=== PATIENT | female | born 1990 | race Two or more races ===

== ENCOUNTER 2025-07-11 13:48 | Emergency (ER) | payer MEDICAID, SELFPAY ==
[2025-07-11 13:49] VITALS: BMI 24.3
--- NOTE | 2025-07-11 13:50 | XR_ITS ---
Examination: Complete OB ultrasound, less than 14 weeks, transabdominal Date and time of exam: July 11, 2025, 1359 hours INDICATIONS: Heavy vaginal bleeding and pelvic cramping beginning 2 days ago Technique: Obstetrical ultrasound images less than 14 weeks performed via transabdominal imaging Findings: Uterus 7.7 cm Intrauterine gestational sac 1.4 cm corresponds to 6 weeks 2 days gestational age No pole, no cardiac activity Right ovary 2.7 cm arterial flow Left ovary obscured by bowel gas IMPRESSION: Empty intrauterine gestational sac corresponding to 6 weeks 2 days gestational age Recommend transvaginal pelvic sonography follow-up to exclude embryonic demise
[2025-07-11 14:00] VITALS: BP 129/80; PULSE 92; RESP 16; TEMP 36.9; O2SAT 98
[2025-07-11 14:25] LABS: Basophils # (Auto) 0.0 Thou/mm3 (0.0-0.2); Basophils % (Auto) 1 % (0-2.5); Eosinophils # (Auto) 0.0 Thou/mm3 (0.0-0.5); Eosinophils % (Auto) 0 % (0-10); Hematocrit 42.3 % (36.0-46.0); Hemoglobin 13.2 g/dL (12.0-16.0); Immature Granulocytes Auto 0.01 Thou/mm3 (0.00-0.00); Lymphocytes # (Auto) 1.4 Thou/mm3 (1.0-4.8); Lymphocytes % (Auto) 23 % (10-50); Mean Corpuscular HGB Conc 31.2 g/dl (31.0-37.0); Mean Corpuscular Hemoglobin 25.7 pg (25.0-35.0); Mean Corpuscular Volume 82 fL (80-100); Monocytes # (Auto) 0.3 Thou/mm3 (0.0-0.8); Monocytes % (Auto) 6 % (0-12); Neutrophils # (Auto) 4.2 Thou/mm3 (1.8-7.7); Neutrophils % (Auto) 70 % (37-80); Nucleated Red Blood Cell # 0.00 Thou/mm3 (0.00-0.00); Nucleated Red Blood Cell % 0 /100 WBC (0); Platelet Count 220 Thou/mm3 (140-440); RDW Standard Deviation 46.7 fL (36.4-46.3); Red Blood Count 5.14 Miln/mm3 (4.00-5.20); White Blood Count 5.9 Thou/mm3 (3.6-11.0)
[2025-07-11 14:48] LABS: Alanine Aminotransferase 25 U/L (10-49); Albumin, Serum 5.0 gm/dL (3.5-5.0); Albumin/Globulin Ratio 1.9 (1.2-2.2); Alkaline Phosphatase 66 U/L (46-116); Anion Gap 10 (7-16); Aspartate Amino Transferase 31 U/L (0-34); BUN/Creatinine Ratio 8 Ratio (12-20); Bilirubin,Total 1.0 mg/dL (0.3-1.2); Blood Urea Nitrogen 6 mg/dL (9-23); Calcium 9.4 mg/dL (8.3-10.6); Calcium (Corrected) 9.4 mg/dL (8.5-10.1); Carbon Dioxide 24.4 mMol/L (20.0-31.0); Chloride 106 mMol/L (98-107); Creatinine (Component) 0.8 mg/dL (0.6-1.3); Estimated Creatinine Clearance 81.2 mL/min (>60); Globulin 2.7 gm/dL (2.3-3.5); Glucose 96 mg/dL (74-106); Osmolality,Calculated 277 (275-295); Potassium 3.8 mMol/L (3.4-5.1); Sodium 140 mMol/L (136-145); Total Protein 7.7 gm/dL (5.7-8.2); eGFR > 60 See Note
[2025-07-11 15:21] LABS: Beta HCG,Quantitative 7567 mIU/mL (<5.0)
--- NOTE | 2025-07-11 16:24 | PD.EDVAGBL ---
ED OB Contraction Preg RMI/HPI General Chief complaint: Vaginal Bleeding Stated complaint: VAG BLEEDING 9 WEEKS PREG Time Seen by Provider: 07/11/25 13:51 Arrival date/time: 07/11/25 13:48 34-year-old female presents to the Emergency Department today for complaints of vaginal spotting and mild pelvic pain patient reports she believes she is approximately 9 weeks patient is G3, P2 Limitations: no limitations Related Data Home Medications ?Medication ?Instructions ?Recorded ?Confirmed nitrofurantoin 100 mg PO BID 03/03/18 03/03/18 monohydrate/macrocrystals 100 mg capsule (Macrobid) phenazopyridine 100 mg tablet 100 mg PO TID PRN DYSURIA 03/03/18 03/03/18 (Pyridium) Allergies Allergy/AdvReac Type Severity Reaction Status Date / Time No Known Allergies Allergy Verified 07/11/25 13:49 Review of Systems Review of Systems Systems Reviewed: All systems reviewed, normal except as documented Constitutional Constitutional: Reports system reviewed and no additional complaints, except as documented, Denies fever(s) and Denies headache(s) Eyes Eyes: Reports system reviewed and no additional complaints, except as documented and Denies blurry vision ENT Ears, Nose, Mouth, and Throat: Reports system reviewed and no additional complaints, except as documented, Denies headache(s), Denies nasal congestion and Denies nasal discharge Cardiovascular Cardiovascular: Reports system reviewed and no additional complaints, except as documented, Denies chest pain and Denies dyspnea Respiratory Respiratory: Reports system reviewed and no additional complaints, except as documented, Denies chest congestion, Denies cough and Denies dyspnea Gastrointestinal Gastrointestinal: Reports system reviewed and no additional complaints, except as documented and Denies abdominal pain Genitourinary Genitourinary: Reports system reviewed and no additional complaints, except as documented and Reports abnormal vaginal bleeding Integumentary/Breasts Skin/Breast: Reports system reviewed and no additional complaints, except as documented and Denies rash Neurologic Neurologic: Reports system reviewed and no additional complaints, except as documented, Reports as per HPI and Denies headache(s) Past Medical History Past Medical History CARDIAC: Negative Congestive Heart Failure RESPIRATORY: Negative Chronic Obstructive Pulmonary Disease (COPD) GENITOURINARY: Negative Renal Disease ENDOCRINE: Negative Diabetes Mellitus Type 1 or Diabetes Mellitus Type 2 Social History SMOKING STATUS: Never smoker ED Exam General Limitations: Present no limitations General appearance: Present alert and in no apparent distress Head Head exam: Present atraumatic, normocephalic and normal inspection Eye Eye exam: Present normal appearance, PERRL and EOMI; Absent conjunctival injection ENT ENT exam: Present normal exam, normal oropharynx and mucous membranes moist Neck Neck exam: Present normal inspection, full ROM and trachea midline Chest Chest inspection: Present normal inspection and symmetric chest wall rise Respiratory Respiratory exam: Present normal lung sounds bilaterally Cardiovascular Cardiovascular exam: Present regular rate, normal rhythm and normal heart sounds Abdominal Exam Abdominal exam: Present soft and normal bowel sounds; Absent distention, tenderness, guarding, rebound or rigidity Extremities Exam Extremities exam: Present normal inspection and full ROM Back Exam Back exam: Present normal inspection and full ROM Neurological Exam Neurological exam: Present alert, oriented X3 and CN II-XII intact Psychiatric Psychiatric exam: Present normal affect and normal mood Skin Skin exam: Present warm, dry, intact and normal color Course Quality Measures none Orders Category Date Time Status US OB <= 14 weeks fetus Stat Exams 07/11/25 13:50 Completed ABO/RH Type Stat Lab 07/11/25 14:14 Completed Beta HCG,Quantitative Stat Lab 07/11/25 14:14 Completed CBC Stat Lab 07/11/25 14:14 Completed Comprehensive Metabolic Panel Stat Lab 07/11/25 14:14 Completed Vital Signs Vital signs: Vital Signs Temperature 98.5 F 07/11/25 14:00 Pulse Rate 92 07/11/25 14:00 Respiratory Rate 16 07/11/25 14:00 Blood Pressure 129/80 07/11/25 14:00 Pulse Oximetry (%) 98 07/11/25 14:00 Oxygen Delivery Method Room Air 07/11/25 14:00 O2 saturation 98% room air with normal Vaginal Bleeding MDM Narrative MDM Narrative: 34-year-old female presents to the Emergency Department today for complaints of vaginal spotting and mild pelvic pain patient reports she believes she is approximately 9 weeks patient is G3, P2 Clinically patient well-appearing does not appear ill or toxic no distress Lab work and imaging obtained I explained to the patient lab work and ultrasound is either indicative of early or miscarriage Consultation: Spoke with Dr Lal states he can see the patient as office on Wednesday at 1 PM Explained to the patient if she develops any significant pain or bleeding to return meetly for further evaluation Patient data External records reviewed:: [facility] previous records Clinical information provided by:: patient Social determinants that could affect healthcare access:: none Patient has the following chronic illnesses:: None How is presenting disease/condition affected by chronic disease/condition?: no chronic disease Evaluation data The following diagnostics were reviewed and interpreted by me:: lab results and radiology exam(s) Lab and/or radiology exams considered but not ordered:: Labs radiology obtained Interpretation Summary: Reviewed by me Medications / Prescriptions Medications or Prescriptions considered but not ordered:: Given no meds Medication administrations:: Given no meds Consultations Consultation(s) initiated? (list below): Yes Diagnosis Vaginal Bleeding Differential Diagnosis: missed and threatened Most likely diagnosis given after review of the tests above:: Threatened Admission Indicated Admission indicated?: not indicated Admission Request Was there a request for admission?: No Disposition Plan Disposition Plan: Discharge Discharge Attestation Discharge Attestation: The patient and all family members were given an opportunity to ask questions and understood the discharge instructions. Discharge instructions specifically effects, indications for sooner follow up or return to the emergency department, and the expected course of current diagnosis. Patient condition: Stable Discharge Plan Plan Patient Disposition: HOME (Self Care) Discharge Disposition comment: Stable Prescriptions/Referrals Prescriptions/Med Rec: No Action phenazopyridine [Pyridium] 100 mg Tablet 100 mg PO TID PRN (Reason: DYSURIA) nitrofurantoin monohyd/m-cryst [Macrobid] 100 mg Capsule 100 mg PO BID Referrals: Leonel Lal MD [Physician, LICENSE ISSUER] - 07/16/25 1:00 pm No Primary/Family,Physician [Primary Care Provider] - In 1 week Problem List Clinical Impression: Threatened Patient/Caregiver Discharge Instructions Education Materials: ED Possible Miscarriage ... Additional Instructions: Please see Dr Lal Wednesday at 1 PM for worsening symptoms or concerns return immediately Print Language: Thai Stand Alone Forms: Chey Award Info., Work/School Release, Patient Portal Info Letter PA/CLINICAL DENTAL TECHNICIAN Supervising Physician PA/CLINICAL DENTAL TECHNICIAN Supervising Physician: Dr. eBckett
== END 2025-07-11 17:18 | disposition home or self-care (01) ==
PROVIDERS: Nurse Practitioner Primary Care; Emergency Provider Emergency Medicine
DX: O20.0 Threatened abortion (principal); Z3A.09 9 weeks gestation of pregnancy
CPT/HCPCS: 36415; 76801; 80053; 84702; 85025; 86900; 86901; 99283

== ENCOUNTER 2025-07-17 20:36 | Emergency (ER) | payer MEDICAID, SELFPAY ==
[2025-07-17 20:38] VITALS: BMI 23.7
[2025-07-17 20:49] VITALS: BP 121/81; PULSE 98; RESP 18; TEMP 36.8; O2SAT 98
--- NOTE | 2025-07-17 21:01 | XR_ITS ---
Examination: Complete OB ultrasound, less than 14 weeks, transabdominal Date and time of exam: July 17, 2025, 2133 hours INDICATIONS: Heavy vaginal bleeding today Technique: Obstetrical ultrasound images less than 14 weeks performed via transabdominal imaging Findings: Uterus 13.8 cm Intrauterine gestational sac 6.7 cm corresponds to 13 weeks 1 day gestational age Gestational sac in the cervix No pole, no cardiac activity Right ovary 2.7 cm arterial flow Left ovary obscured by bowel gas IMPRESSION: Spontaneous in progress, recommend short-term follow-up transvaginal pelvic sonography
--- NOTE | 2025-07-17 21:01 | PD.EDRME ---
Rapid Medical Screening Exam RME Arrival date/time: 07/17/25 20:36 This is a case of 34-year-old female with no medical history came into the emergency room due to vaginal bleeding patient is 10 weeks and was seen here 3 days ago and was treated as threatened about 3 para 2 worsening of the vaginal bleeding and pelvic cramping this patient decided to sought consult here in the emergency Chief Complaint: Vaginal Bleeding Time Seen by Provider: 07/17/25 20:46 Vital signs: Vital Signs Temperature 98.2 F 07/17/25 20:49 Pulse Rate 98 07/17/25 20:49 Respiratory Rate 18 07/17/25 20:49 Blood Pressure 121/81 07/17/25 20:49 Pulse Oximetry (%) 98 07/17/25 20:49 Oxygen Delivery Method Room Air 07/17/25 20:49 Exam: Pelvic tenderness no guarding no rebound no rigidity Clinical Impression: Vaginal bleeding and
[2025-07-17 21:19] LABS: Basophils # (Auto) 0.0 Thou/mm3 (0.0-0.2); Basophils % (Auto) 0 % (0-2.5); Eosinophils # (Auto) 0.0 Thou/mm3 (0.0-0.5); Eosinophils % (Auto) 1 % (0-10); Hematocrit 40.9 % (36.0-46.0); Hemoglobin 12.7 g/dL (12.0-16.0); Immature Granulocytes Auto 0.02 Thou/mm3 (0.00-0.00); Lymphocytes # (Auto) 1.5 Thou/mm3 (1.0-4.8); Lymphocytes % (Auto) 20 % (10-50); Mean Corpuscular HGB Conc 31.1 g/dl (31.0-37.0); Mean Corpuscular Hemoglobin 26.0 pg (25.0-35.0); Mean Corpuscular Volume 84 fL (80-100); Monocytes # (Auto) 0.4 Thou/mm3 (0.0-0.8); Monocytes % (Auto) 5 % (0-12); Neutrophils # (Auto) 5.4 Thou/mm3 (1.8-7.7); Neutrophils % (Auto) 74 % (37-80); Nucleated Red Blood Cell # 0.00 Thou/mm3 (0.00-0.00); Nucleated Red Blood Cell % 0 /100 WBC (0); Platelet Count 215 Thou/mm3 (140-440); RDW Standard Deviation 47.1 fL (36.4-46.3); Red Blood Count 4.89 Miln/mm3 (4.00-5.20); White Blood Count 7.4 Thou/mm3 (3.6-11.0)
[2025-07-17 21:42] LABS: Alanine Aminotransferase 20 U/L (10-49); Albumin, Serum 4.9 gm/dL (3.5-5.0); Albumin/Globulin Ratio 2.0 (1.2-2.2); Alkaline Phosphatase 65 U/L (46-116); Anion Gap 10 (7-16); Aspartate Amino Transferase 28 U/L (0-34); BUN/Creatinine Ratio 10 Ratio (12-20); Bilirubin,Total 0.8 mg/dL (0.3-1.2); Blood Urea Nitrogen 9 mg/dL (9-23); Calcium 9.4 mg/dL (8.3-10.6); Calcium (Corrected) 9.4 mg/dL (8.5-10.1); Carbon Dioxide 24.0 mMol/L (20.0-31.0); Chloride 106 mMol/L (98-107); Creatinine (Component) 0.9 mg/dL (0.6-1.3); Estimated Creatinine Clearance 72.2 mL/min (>60); Globulin 2.5 gm/dL (2.3-3.5); Glucose 115 mg/dL (74-106); Osmolality,Calculated 279 (275-295); Potassium 4.1 mMol/L (3.4-5.1); Sodium 140 mMol/L (136-145); Total Protein 7.4 gm/dL (5.7-8.2); eGFR > 60 See Note
[2025-07-17 21:52] LABS: Beta HCG,Quantitative 2585 mIU/mL (<5.0)
[2025-07-17 22:28] VITALS: BP 130/68; PULSE 81; RESP 19; TEMP 36.6; O2SAT 99
[2025-07-18 00:18] VITALS: BP 105/85; PULSE 69; RESP 19; TEMP 36.8; O2SAT 100
[2025-07-18 00:47] LABS: Collection Type, Urine Voided
--- NOTE | 2025-07-18 01:21 | PD.EDVAGBL ---
ED OB Contraction Preg RMI/HPI General Chief complaint: Vaginal Bleeding Stated complaint: MISCARGE VAG BLEEDING Time Seen by Provider: 07/17/25 20:46 Arrival date/time: 07/17/25 20:36 Limitations: no limitations RME / HPI RME / HPI Narrative: 07/17/25 20:36 This is a case of 34-year-old female with no medical history came into the emergency room due to vaginal bleeding patient is 10 weeks and was seen here 3 days ago and was treated as threatened about 3 para 2 worsening of the vaginal bleeding and pelvic cramping this patient decided to sought consult here in the emergency Dr. Tapia's Main ED Evaluation: 34yo female who is a patient of Dr Lal at approximately 10 weeks gestation presents to the Emergency Department with vaginal bleeding x 1 day. The patient states that she was seen earlier this week and was told that she may have had a miscarriage but it was too early to tell . She saw her CUSTOMER OPERATIONS SPECIALIST, Dr. Lal who said the same thing. The baby was measuring at 6 weeks and not 10 weeks. Today the patient started having vaginal bleeding. She had a cramping that is now improved. She believes that she has passed fetus. Denies any other associated symptoms. NKA. Related Data Home Medications ?Medication ?Instructions ?Recorded ?Confirmed nitrofurantoin 100 mg PO BID 03/03/18 03/03/18 monohydrate/macrocrystals 100 mg capsule (Macrobid) phenazopyridine 100 mg tablet 100 mg PO TID PRN DYSURIA 03/03/18 03/03/18 (Pyridium) Allergies Allergy/AdvReac Type Severity Reaction Status Date / Time No Known Allergies Allergy Verified 07/17/25 20:42 Review of Systems Review of Systems Systems Reviewed: All systems reviewed, normal except as documented Past Medical History Past Medical History CARDIAC: Negative Congestive Heart Failure RESPIRATORY: Negative Chronic Obstructive Pulmonary Disease (COPD) GENITOURINARY: Negative Renal Disease ENDOCRINE: Negative Diabetes Mellitus Type 1 or Diabetes Mellitus Type 2 Social History SMOKING STATUS: Never smoker ED Exam General Limitations: Present no limitations General appearance: Present alert and in no apparent distress Head Head exam: Present atraumatic Eye Eye exam: Present normal appearance, PERRL and EOMI ENT ENT exam: Present normal exam, normal oropharynx and mucous membranes moist Neck Neck exam: Present normal inspection, full ROM and trachea midline Chest Chest inspection: Present normal inspection and symmetric chest wall rise Respiratory Respiratory exam: Present normal lung sounds bilaterally Cardiovascular Cardiovascular exam: Present regular rate, normal rhythm and normal heart sounds Abdominal Exam Abdominal exam: Present soft and normal bowel sounds Extremities Exam Extremities exam: Present normal inspection and full ROM Back Exam Back exam: Present normal inspection and full ROM Neurological Exam Neurological exam: Present alert, oriented X3 and CN II-XII intact Psychiatric Psychiatric exam: Present normal affect and normal mood Skin Skin exam: Present warm, dry, intact and normal color Course Quality Measures none Orders Category Date Time Status US OB <= 14 weeks fetus Stat Exams 07/17/25 21:01 Completed ABO/RH Type Stat Lab 07/17/25 21:08 Completed Beta HCG,Quantitative Stat Lab 07/17/25 21:08 Completed CBC Stat Lab 07/17/25 21:08 Completed CMP [Comprehensive Metabolic Panel] Stat Lab 07/17/25 21:08 Completed Urinalysis Stat Lab 07/18/25 00:05 Completed Morphine* Inj Med 07/18/25 01:49 Discontinued 4 mg IVP X1 ONE Ondansetron Inj [Zofran Inj] Med 07/18/25 01:49 Discontinued 4 mg IVP X1 ONE Sodium Chloride 0.9% 1000 ml [Ns] 1,000 ml Med 07/18/25 01:50 Discontinued IV 999 mls/hr Vital Signs Vital signs: Vital Signs Temperature 98.2 F 07/17/25 20:49 Pulse Rate 98 07/17/25 20:49 Respiratory Rate 18 07/17/25 20:49 Blood Pressure 121/81 07/17/25 20:49 Pulse Oximetry (%) 98 07/17/25 20:49 Oxygen Delivery Method Room Air 07/17/25 20:49 Vaginal Bleeding MDM Narrative MDM Narrative: Scribe Attestation: 07/18/25 Mai Becerra am scribing for and in the presence of Dr. Tapia. 34-year-old female patient of Dr Lal at approximately 10 weeks gestation presents to the Emergency Department with vaginal bleeding x 1 day. The patient states that she was seen earlier this week and was told that she may have had a miscarriage but it was too early to tell . She still Dr Lal who said the same thing. The baby was measuring at 6 weeks and not 10 weeks. Today the patient started having vaginal bleeding. She had a cramping that is now improved. She believes that she has passed fetus. Patient is hemodynamically stable here in the emergency department. White count is 12/40. I urinalysis is still pending. Labs are reviewed interpreted by me Pending pelvic exam At this time, I do not feel comfortable performing a pelvic exam as the patient is cursing at me. Patient data External records reviewed:: [facility] previous records (Per chart review, patient was seen here on 07/11/25 for threatened .) Clinical information provided by:: patient Social determinants that could affect healthcare access:: none Patient has the following chronic illnesses:: none How is presenting disease/condition affected by chronic disease/condition?: no chronic disease Evaluation data The following diagnostics were reviewed and interpreted by me:: lab results and radiology exam(s) Lab and/or radiology exams considered but not ordered:: none Interpretation Summary: CBC normal, CMP normal, Beta HCG 2585. ------- [facility] Report Signed Patient: KATINA KOEHLER [facility]. Record#: [id number] Birthdate: 1990 Age/Sex: 34 / F Location: [facility] Attending Dr: Ordering Physician: Liberty Myers Date of Service: 07/17/25 Procedure(s): US OB <= 14 weeks fetus Accession Number(s): [id number] cc: Travis Almaraz MD; Ross Dennison MD; Liberty Myers~ Examination: Complete OB ultrasound, less than 14 weeks, transabdominal Date and time of exam: July 17, 2025, 2133 hours INDICATIONS: Heavy vaginal bleeding today Technique: Obstetrical ultrasound images less than 14 weeks performed via transabdominal imaging Findings: Uterus 13.8 cm Intrauterine gestational sac 6.7 cm corresponds to 13 weeks 1 day gestational age Gestational sac in the cervix No pole, no cardiac activity Right ovary 2.7 cm arterial flow Left ovary obscured by bowel gas IMPRESSION: Spontaneous in progress, recommend short-term follow-up transvaginal pelvic sonography Dictated By: Ross Dennison MD Signed By: <Electronically signed by Ross Dennison MD in OV> 07/17/25 2225 Medications / Prescriptions Medications or Prescriptions considered but not ordered:: none Medication administrations:: Medication Administration History Discontinued Medications Sodium Chloride (Ns) 1,000 mls @ 999 mls/hr IV .Q1H1M ONE Stop: 07/18/25 02:50 Last Infusion: 07/18/25 02:59 Dose: Infused Documented By: Admin: 07/18/25 01:58 Dose: 999 mls/hr Documented By: GONZALO Morphine Sulfate (Morphine Sulf Inj 4 Mg/Ml Vial) 4 mg IVP X1 ONE Stop: 07/18/25 01:50 Last Admin: 07/18/25 01:57 Dose: 4 mg Documented By: GONZALO Ondansetron HCl (Ondansetron Inj 2 Mg/Ml Inj 2 Ml) 4 mg IVP X1 ONE; Protocol Stop: 07/18/25 01:50 Last Admin: 07/18/25 01:57 Dose: 4 mg Documented By: GONZALO none Consultations Consultation(s) initiated? (list below): No Diagnosis Vaginal Bleeding Differential Diagnosis: missed , threatened , incomplete and vaginal bleeding Most likely diagnosis given after review of the tests above:: see clinical impression below Admission Indicated Admission indicated?: not indicated Admission Request Was there a request for admission?: No Disposition Plan Disposition Plan: other (specify) (Signed out to EFRAIN Junior) Discharge Plan Plan Patient Disposition: HOME (Self Care) Discharge Disposition comment: Stable Prescriptions/Referrals Prescriptions/Med Rec: No Action phenazopyridine [Pyridium] 100 mg Tablet 100 mg PO TID PRN (Reason: DYSURIA) nitrofurantoin monohyd/m-cryst [Macrobid] 100 mg Capsule 100 mg PO BID Referrals: Travis Almaraz MD [Primary Care Provider, Family Practice] - In 1 week Problem List Clinical Impression: Incomplete miscarriage Patient/Caregiver Discharge Instructions Education Materials: ED Miscarriage, Incomplete Additional Instructions: Please follow-up with PCP/OBYGN within 24-48 hours and return immediately if symptoms worsen. Call Dr. Lal's office in the AM. Given miscarriage, can take NSAIDs simultaneously with Tylenol if needed for greater pain control. Print Language: Georgian Stand Alone Forms: Patient Portal Info Letter EFRAIN/CONCEPCIÓN Supervising Physician DEYSI Supervising Physician: Dr. Baron
[2025-07-18 01:23] LABS: Amorphous Crystals,Urine Present (Absent); Bilirubin,Urine Negative (Negative); Color,Urine Red (Lt Yel-Yel); Glucose, Urine Negative (Negative); Ketones,Urine Negative (Negative); Leukocyte Esterase,Urine Positive (Negative); Nitrite,Urine Negative (Negative); PH,Urine 6.0 (5.0-7.0); Protein,Urine 2+ (Neg - Trace); Specific Gravity,Urine 1.016 (1.001-1.035); Squamous Epithelial Cell,Urine 8 /hpf (0-5); Urobilinogen,Urine Negative mg/dL (0.0-1.0); WBC,Urine 6 /hpf (0-5)
[2025-07-18 01:41] LABS: Clarity,Urine Turbid (Clear/Hazy); RBC,Urine 4474 /hpf (0-3)
[2025-07-18 01:43] LABS: Blood,Urine 3+ (Negative)
[2025-07-18] MEDS: ONDANSETRON INJ 2 MG/ML INJ 2 ML 4 MG IVP (01:57)
[2025-07-18] MEDS: MORPHINE SULF INJ 4 MG/ML VIAL IVP (01:57)
[2025-07-18] MEDS: SODIUM CHLORIDE 0.9% 1000 ML 1,000 ML 999 ML IV (01:58)
--- NOTE | 2025-07-18 01:59 | PC.NURSE ---
PER PT, REQUESTING ANOTHER PROVIDER TO PERFORM PELVIC EXAM
--- NOTE | 2025-07-18 03:56 | EDNOTE_ITS ---
Emergency Room Addendum Addendum Narrative: Care received from Dr. Baron as patient asked for a different provider. See full note from previous provider. Physical exam with vehicle body sander LAURA Barrera reveals open cervix with blood clot in vaginal area, which was removed. Pain improved with morphine. US reveals ongoing miscarriage with Beta HCG much lower today compared to last week. Maintenance Supervisor Electrical given, including to call Dr. Lal (patient OB) to see if patient should continue expectant management vs medical/surgical.
[2025-07-18 04:02] VITALS: BP 109/82; PULSE 81; RESP 15; O2SAT 100
== END 2025-07-18 04:04 | disposition home or self-care (01) ==
PROVIDERS: Nurse Practitioner Family; Emergency Provider Emergency Medicine; PCP Family Medicine
DX: O03.4 Incomplete spontaneous abortion without complication (principal); Z3A.13 13 weeks gestation of pregnancy
CPT/HCPCS: 36415; 76801; 80053; 81001; 84702; 85025; 86900; 86901; 96361; 96374; 96375; 99284; J2270; J2405; J7030